=== PATIENT | female | born 1995 | race African-American/Black ===

== ENCOUNTER 2021-09-16 09:43 | Emergency (ER) | payer SELFPAY ==
[~2021-09-16] VITALS: Ht 160 cm; Wt 72.7 kg
[2021-09-16 09:50] VITALS: TEMP 98.6
[2021-09-16 10:30] LABS: BASO % 0.2 % (0.0-2.0); EOS % 0.7 % (0.0-4.0); GRAN # 2.5 K/mm3 (1.4-6.5); GRAN % 60.3 % (42.2-75.2); HEMATOCRIT 34.5 % (37.0-47.0); LYMPH # 1.3 K/mm3 (1.2-3.4); LYMPH % 30.1 % (20.0-51.0); MEAN CELL VOLUME 83 fl (80.0-100.0); MEAN CORPUSCULAR HEMOGLOBIN 29 pg (27-31); MEAN CORPUSCULAR HGB CONC 35 g/dl (33.0-37.0); MEAN PLATELET VOLUME 9.7 fl (7.4-10.4); MONO # 0.4 K/mm3 (0.1-0.6); MONO % 8.5 % (1.7-9.3); PLATELET COUNT 220 K/mm3 (130-400); RED BLOOD COUNT 4.15 M/mm3 (4.10-5.30)
[2021-09-16 10:47] LABS: ALBUMIN 3.7 gm/dL (3.5-5.0); CALCIUM 9.1 mg/dL (8.4-10.2); CREATININE, serum 0.67 mg/dL (0.57-1.11); POTASSIUM 3.7 mmol/L (3.5-4.5)
[2021-09-16] MEDS ORDERED: ZOFRAN ODT4 MG PO (11:09)
[2021-09-16] MEDS ORDERED: PHENERGAN12.5 MG/SU RC (11:09)
[2021-09-16 11:32] LABS: COLLECTION METHOD CLEAN CATCH
[2021-09-16 11:42] LABS: URINE COLOR Yellow (YELLOW)
[2021-09-16 11:43] LABS: PH 6 (5-8); URINE APPEARANCE Hazy (CLEAR/HAZY); URINE BLOOD Negative (NEGATIVE); URINE GLUCOSE Negative (NEGATIVE); URINE KETONE 1+ (NEGATIVE); URINE NITRATE Negative (NEGATIVE); URINE PROTEIN(semi-quant) 1+ (NEGATIVE); URINE UROBILINOGEN >=4.0 (NEGATIVE)
[2021-09-16 11:58] VITALS: BP 114/78; PULSE 81
== END 2021-09-16 11:59 | disposition home or self-care (01) ==
LOC: COL.ER 09:43
PROVIDERS: Emergency Medicine
DX: O21.9 Vomiting of pregnancy, unspecified (principal); O99.012 Anemia complicating pregnancy, second trimester; O26.892 Other specified pregnancy related conditions, second trimester; R10.31 Right lower quadrant pain; R10.32 Left lower quadrant pain; E86.0 Dehydration; E87.1 Hypo-osmolality and hyponatremia; E87.8 Other disorders of electrolyte and fluid balance, not elsewhere classified; Z3A.16 16 weeks gestation of pregnancy
CPT/HCPCS: J2765; J7030